=== PATIENT | male | born 1965 | race Caucasian/White ===

== ENCOUNTER → 2018-06-07 09:44 | Outpatient (CLI) | payer OTHER, SELFPAY ==
[2018-06-07 12:25] LABS: Anion Gap 8 (5-15); BUN 16 mg/dL (7-18); BUN/Creat Ratio 13.2 RATIO (10-20); Calcium,Total 9.5 mg/dL (8.5-10.1); Chloride 109 mmol/L (98-107); Cholesterol 207 mg/dL (200); Creatinine, Serum 1.21 mg/dL (0.70-1.30); EST Glomerular Filtration Rate 67 mL/min (>60); Est Glom Filt Rate - Afr Amer 81 mL/min (>60); Glucose 114 mg/dL (74-106); High Density Lipoprotein 29 mg/dL; Potassium 4.3 mmol/L (3.5-5.1); Sodium Level 146 mmol/L (136-145); Triglycerides 259 mg/dL; Very Low Density Lipoprotein 52 mg/dL (5-40)
[2018-06-07 12:32] LABS: Hemoglobin A1c 5.9 % (4.2-6.3)
== END ==
PROVIDERS: Family Provider Family Medicine; PCP Family Medicine; Visit Provider Family Medicine
DX: E78.5 Hyperlipidemia, unspecified (principal); L91.8 Other hypertrophic disorders of the skin
CPT/HCPCS: 36415; 80048; 80061; 83036